=== PATIENT | female | born 1990 | race Caucasian/White ===

== ENCOUNTER 2021-03-06 13:49 | Inpatient (IN) | payer BC ==
[2021-03-06] MEDS ORDERED: MAGNESIUM CITRATE 300 ML BOTTLE PO PRN (15:26)
[2021-03-06] MEDS ORDERED: MENTHOL/PHENOL 1 EACH UD MM PRN (15:26)
[2021-03-06] MEDS ORDERED: BISMUTH SUBSALICYLATE 524 MG/30 ML PO PRN (15:26)
[2021-03-06] MEDS ORDERED: MAG HYDROX/AL HYDROX/SIMETH 30 ML UNIT-DOSE CUP PO PRN (15:26)
[2021-03-06] MEDS ORDERED: MAGNESIUM HYDROX 2400MG/30ML ORAL SUSPENSION 30 ML CUP PO PRN (15:26)
[2021-03-06] MEDS ORDERED: NALOXONE HCL 0.4 MG/ML VIAL IM PRN (15:26)
[2021-03-06] MEDS ORDERED: ACETAMINOPHEN 325 MG TABLET (FP) PO PRN ×2 (15:26)
[2021-03-06] MEDS ORDERED: IBUPROFEN 400 MG TABLET (FP) PO PRN (15:26)
[2021-03-06 15:30] VITALS: BMI 21.2
[2021-03-06] MEDS: NICOTINE POLACRILEX 2 MG GUM BUC PRN ×2 (17:45→21:31)
[2021-03-06] MEDS: diazePAM 5 MG TABLET PO SCH ×2 (17:46→22:13)
[2021-03-06] MEDS: NICOTINE 7 MG/24 HOURS TOPICAL PATCH TD SCH (17:47)
[2021-03-06] MEDS: METHOCARBAMOL 500 MG TABLET PO PRN (18:32)
[2021-03-06] MEDS: GABAPENTIN 300 MG CAPSULE PO SCH (21:28)
[2021-03-06] MEDS: MELATONIN 5 MG TABLETS PO SCH (21:28)
[2021-03-06] MEDS: THIAMINE HCL 100 MG TABLET (FP) PO SCH (21:28)
[2021-03-06] MEDS ORDERED: QUEtiapine FUMARATE 50 MG TABLET PO ONE (22:00)
[2021-03-07] MEDS ORDERED: METHADONE HCL 10 MG TABLET ONE (04:33)
[2021-03-07] MEDS ORDERED: METHADONE HCL 40 MG DISPERSABLE TABLET ONE (04:34)
[2021-03-07] MEDS ORDERED: METHADONE HCL 10 MG TABLET PO SCH (06:00)
[2021-03-07] MEDS: GABAPENTIN 300 MG CAPSULE PO SCH ×3 (06:22→23:23)
[2021-03-07] MEDS: diazePAM 5 MG TABLET PO SCH ×4 (06:23→20:04)
[2021-03-07] MEDS: METHADONE 40 MG, METHADONE 30 MG PO SCH (06:23)
[2021-03-07] MEDS: NICOTINE POLACRILEX 2 MG GUM BUC PRN ×5 (06:27→23:27)
[2021-03-07] MEDS: METHOCARBAMOL 500 MG TABLET PO PRN ×2 (10:46→17:10)
[2021-03-07 11:04] LABS: HEMATOCRIT 35.8 % (32.4-45.2); HEMOGLOBIN 12.1 GM/dL (10.7-15.3); MCH 31.2 pg (25.7-33.7); MCHC 33.9 g/dl (32.0-36.0); MEAN CELL VOLUME 91.9 fl (80-96); MEAN PLT VOLUME 7.5 fl (7.5-11.1); PLATELET COUNT 487 K/MM3 (134-434); RDW 15.8 % (11.6-15.6); WHITE BLOOD COUNT 7.2 K/mm3 (4.0-10.0)
[2021-03-07] MEDS: NICOTINE 7 MG/24 HOURS TOPICAL PATCH TD SCH (11:07)
[2021-03-07] MEDS: PRENATAL VITAMINS W/ FOLIC ACID TABLET (FP) PO SCH (11:07)
[2021-03-07 11:12] LABS: ALBUMIN 3.2 g/dl (3.4-5.0); BLOOD UREA NITROGEN 8.1 mg/dL (7-18)
[2021-03-07 11:15] LABS: CREATININE 0.8 mg/dL (0.55-1.3)
[2021-03-07 11:16] LABS: TOT PROT 7.3 g/dl (6.4-8.2)
[2021-03-07 11:21] LABS: BILIRUBIN,TOTAL 0.8 mg/dL (0.2-1); CALCIUM 8.7 mg/dL (8.5-10.1)
[2021-03-07] MEDS ORDERED: TRIMETHOBENZAMIDE HCL 200MG/2ML INJ IM PRN (13:03)
[2021-03-07] MEDS: diazePAM 5 MG TABLET PO PRN ×2 (13:03→17:47)
[2021-03-07] MEDS: DEXTROAMPHETAMINE/AMPHETAMINE 10 MG CAP.ER.24H PO SCH (14:38)
[2021-03-07] MEDS ORDERED: METHYLPHENIDATE HCL 5 MG TABLET PO SCH ×2 (17:00→22:00)
[2021-03-07] MEDS: hydrOXYzine PAMOATE 25 MG CAPSULE (FP) PO PRN (17:10)
[2021-03-07] MEDS: QUEtiapine FUMARATE 100 MG TABLET (FP) PO SCH (23:22)
[2021-03-07] MEDS: THIAMINE HCL 100 MG TABLET (FP) PO SCH (23:22)
[2021-03-07] MEDS: NEOMYCIN/POLYMYXIN/BACITRACIN (TRIPLE ANTIBIOTIC) 28 GM OINTMENT TP PRN (23:23)
[2021-03-07] MEDS: MELATONIN 5 MG TABLETS PO SCH (23:23)
[2021-03-08] MEDS: diazePAM 5 MG TABLET PO PRN ×4 (01:05→23:14)
[2021-03-08] MEDS ORDERED: METHADONE HCL 10 MG TABLET ONE (04:35)
[2021-03-08] MEDS ORDERED: METHADONE HCL 40 MG DISPERSABLE TABLET ONE (04:36)
[2021-03-08] MEDS ORDERED: diazePAM 5 MG TABLET PO SCH (06:00)
[2021-03-08] MEDS: diazePAM 5 MG TABLET PO SCH ×3 (06:20→21:16)
[2021-03-08] MEDS: METHADONE 40 MG, METHADONE 30 MG PO SCH (06:20)
[2021-03-08] MEDS: GABAPENTIN 300 MG CAPSULE PO SCH ×3 (06:20→23:13)
[2021-03-08] MEDS: NICOTINE POLACRILEX 2 MG GUM BUC PRN ×2 (06:22→09:10)
[2021-03-08] MEDS: NEOMYCIN/POLYMYXIN/BACITRACIN (TRIPLE ANTIBIOTIC) 28 GM OINTMENT TP PRN ×3 (06:26→16:38)
[2021-03-08] MEDS: NICOTINE 7 MG/24 HOURS TOPICAL PATCH TD SCH ×2 (10:20→11:52)
[2021-03-08] MEDS: PRENATAL VITAMINS W/ FOLIC ACID TABLET (FP) PO SCH (10:20)
[2021-03-08] MEDS: DEXTROAMPHETAMINE/AMPHETAMINE 10 MG CAP.ER.24H PO SCH (10:20)
[2021-03-08] MEDS ORDERED: cloNIDine HCL 0.1 MG TABLET PO ONE (10:44)
[2021-03-08] MEDS ORDERED: ALBUTEROL SO4 HFA INHALER IH PRN (10:46)
[2021-03-08] MEDS: NICOTINE POLACRILEX 4 MG GUM BUC PRN ×5 (11:49→23:18)
[2021-03-08] MEDS: NICOTINE 21 MG/24 HOURS TOPICAL PATCH TD SCH (11:49)
[2021-03-08] MEDS: hydrOXYzine PAMOATE 25 MG CAPSULE (FP) PO PRN (16:36)
[2021-03-08] MEDS: METHOCARBAMOL 500 MG TABLET PO PRN (17:12)
[2021-03-08] MEDS ORDERED: COLLOIDAL OATMEAL 1 BAR EACH TP PRN (18:08)
[2021-03-08] MEDS: cloNIDine HCL 0.1 MG TABLET PO SCH (23:13)
[2021-03-08] MEDS: QUEtiapine FUMARATE 100 MG TABLET (FP) PO SCH (23:13)
[2021-03-08] MEDS: THIAMINE HCL 100 MG TABLET (FP) PO SCH (23:14)
[2021-03-08] MEDS: MELATONIN 5 MG TABLETS PO SCH (23:19)
[2021-03-09] MEDS ORDERED: METHADONE HCL 40 MG DISPERSABLE TABLET ONE (03:36)
[2021-03-09] MEDS ORDERED: METHADONE HCL 10 MG TABLET ONE (03:36)
[2021-03-09] MEDS: GABAPENTIN 300 MG CAPSULE PO SCH ×3 (05:59→22:35)
[2021-03-09] MEDS: METHADONE 40 MG, METHADONE 30 MG PO SCH (05:59)
[2021-03-09] MEDS ORDERED: diazePAM 5 MG TABLET PO SCH (06:00)
[2021-03-09] MEDS: diazePAM 5 MG TABLET PO SCH ×2 (06:00→17:39)
[2021-03-09] MEDS: METHOCARBAMOL 500 MG TABLET PO PRN ×2 (06:05→12:04)
[2021-03-09] MEDS: NICOTINE POLACRILEX 4 MG GUM BUC PRN ×6 (06:06→21:12)
[2021-03-09] MEDS: NICOTINE 21 MG/24 HOURS TOPICAL PATCH TD SCH (09:28)
[2021-03-09] MEDS: DEXTROAMPHETAMINE/AMPHETAMINE 10 MG CAP.ER.24H PO SCH (09:28)
[2021-03-09] MEDS: diazePAM 5 MG TABLET PO PRN ×2 (09:28→14:55)
[2021-03-09] MEDS: PRENATAL VITAMINS W/ FOLIC ACID TABLET (FP) PO SCH (09:28)
[2021-03-09] MEDS: NEOMYCIN/POLYMYXIN/BACITRACIN (TRIPLE ANTIBIOTIC) 28 GM OINTMENT TP PRN ×2 (09:31→17:43)
[2021-03-09] MEDS: cloNIDine HCL 0.1 MG TABLET PO SCH ×2 (09:35→22:35)
[2021-03-09] MEDS ORDERED: IBUPROFEN 600 MG TABLET (FP) PO PRN (10:43)
[2021-03-09] MEDS: hydrOXYzine PAMOATE 25 MG CAPSULE (FP) PO PRN (13:04)
[2021-03-09 22:02] VITALS: TEMP 97.1
[2021-03-09] MEDS: QUEtiapine FUMARATE 100 MG TABLET (FP) PO SCH (22:34)
[2021-03-09] MEDS: THIAMINE HCL 100 MG TABLET (FP) PO SCH (22:34)
[2021-03-09] MEDS: MELATONIN 5 MG TABLETS PO SCH (22:34)
[2021-03-10] MEDS: NICOTINE POLACRILEX 4 MG GUM BUC PRN ×3 (01:51→06:03)
[2021-03-10] MEDS ORDERED: METHADONE HCL 40 MG DISPERSABLE TABLET ONE (04:06)
[2021-03-10] MEDS ORDERED: METHADONE HCL 10 MG TABLET ONE (04:06)
[2021-03-10] MEDS: METHADONE 40 MG, METHADONE 30 MG PO SCH (06:00)
[2021-03-10] MEDS: GABAPENTIN 300 MG CAPSULE PO SCH (06:00)
[2021-03-10] MEDS ORDERED: diazePAM 5 MG TABLET PO ONE (06:00)
[2021-03-10 06:09] LABS: SARS-CoV-2 NAA Not Detected (Not Detected)
[2021-03-10 06:33] VITALS: BP 102/63; PULSE 80
== END 2021-03-10 07:17 | disposition home or self-care (01) | DRG 773 ==
LOC: YASAS 13:49 → Y3N 16:55
PROVIDERS: ADMIT Allergy & Immunology; ATTEND Allergy & Immunology
PROC: HZ2ZZZZ Detoxification Services for Substance Abuse Treatment (ICD-10-PCS; principal; 2021-03-06)
DX: F10.230 Alcohol dependence with withdrawal, uncomplicated (principal); F13.230 Sedative, hypnotic or anxiolytic dependence with withdrawal, uncomplicated; F11.20 Opioid dependence, uncomplicated; F14.20 Cocaine dependence, uncomplicated; F12.20 Cannabis dependence, uncomplicated; F17.210 Nicotine dependence, cigarettes, uncomplicated; F19.280 Other psychoactive substance dependence with psychoactive substance-induced anxiety disorder; F19.282 Other psychoactive substance dependence with psychoactive substance-induced sleep disorder; F19.24 Other psychoactive substance dependence with psychoactive substance-induced mood disorder; F90.9 Attention-deficit hyperactivity disorder, unspecified type; E63.9 Nutritional deficiency, unspecified; J45.909 Unspecified asthma, uncomplicated; M54.5 Low back pain; G89.29 Other chronic pain; Z62.810 Personal history of physical and sexual abuse in childhood; Z91.410 Personal history of adult physical and sexual abuse; Z90.81 Acquired absence of spleen
CPT/HCPCS: 36415; 80053; 81025; 85027; 86780; 93005; 93010; C9803; J0735; U0003; U0005